=== PATIENT | female | born 1970 | race Caucasian/White ===

== ENCOUNTER 2017-08-04 15:42 | Emergency (ER) | payer OTHER ==
[2017-08-04 15:50] VITALS: RESP 18; TEMP 98.1
--- NOTE | 2017-08-04 16:23 | EDPHY ---
HPI/HX/ROS/PE/MDM Narrative: CHIEF COMPLAINT: Transient aphasia and near syncope HISTORY OF PRESENT ILLNESS: The patient is a 46 y/o female arriving via EMS following a near syncopal episode accompanied by aphasia. 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 She had difficulty thinking and saying words. The words she did say sounded weird to both her and the people on the conference call. She describes feeling dizzy, lightheaded, tongue tingling, anxiety, and heart racing. She sat down and called her and he reports that she was upset but articulate. She reports symptoms are now resolved. She has experienced a recent cold, and a menstrual period two weeks early. She denies nausea, vomiting, or other associated symptoms. She denies history of hypertension, diabetes, or family history of strokes. She reports eating and drinking normally today. No fever, chills, chest pain, shortness of breath, palpitations, vomiting, diarrhea, urinary complaints, headache, lightheadedness. REVIEW OF SYSTEMS: Aside from elements discussed in the HPI, a comprehensive 10-point review of systems was reviewed and is negative. PAST MEDICAL HISTORY: Uterine ablation SOCIAL HISTORY: at bedside, works from home, lives in [place]. VITAL SIGNS Reviewed by me. GENERAL: Well-developed, well-nourished, resting in a dark room. HEENT: Atraumatic. Eyes: PERRL, EOMI, no nystagmus. No icterus. No injection. Mouth: moist mucous membranes. No erythema or lesions. Neck: No meningitis. Nontender to palpation. No adenopathy. Negative Kernig's. Negative Brudzinski's. No meningismus. LUNGS: Clear to auscultation bilaterally, no wheezes, rhonchi or rales. CARDIAC: Regular rate and rhythm, no rubs, murmurs or gallops. ABDOMEN: Soft, nontender, nondistended, bowel sounds normal. BACK: No CVA tenderness. EXTREMITIES: No trauma. No edema. Range of motion is normal throughout. NEURO: Alert and oriented, cranial nerves II through XII are intact. Motor strength 5 over 5 in all major muscle groups. Sensation intact to light touch. Normal gait. A few misspeaks on articulation SKIN: Warm and dry, no rash. PSYCHIATRIC: Normal mentation, no agitation. Portions of this note were transcribed by a biomedical equipment specialist. I personally performed a history, physical exam, medical decision making, and confirmed accuracy of information the transcribed note. ED Course: 12-LEAD EKG: Please see the full report in [facility]. My interpretation: Normal sinus rhythm Study: CT of the head Indication: Acute aphasia Results: CT scan of the body parts was obtained. The results of the study are normal. The study was read by the radiologist, Dr. Baker I viewed the images myself on the PACS system. Study: MRI of the: Head and neck Indication: Neurologic Results: MRI scan of the body parts was obtained. The results of the study are normal. The study was read by the radiologist, Dr. Kimbrough. I viewed the images myself on the PACS system. The patient is a 46 y/o female complaining of acute onset aphasia and faint feeling. She was on a conference call today when she felt she might faint and began experiencing difficulty thinking and say words. The words she did say did not make sense which was noted by the people on the call with her. She reports symptoms have resolved though she had a few misspeaks with me on articulation and object naming. 1715: Head CT and EKG are both normal. I will consult with Neurology. 1722: I spoke with Dr. Gonzalez, neurology, regarding this patient. He recommends evaluation of the carotid arteries and an MRI the brain would help complete the patient's evaluation and she could be discharged if these were normal. Patient did have a brain MRI as well as a 4 vessel angiogram MRI of the neck. 2050: Head and neck MRI normal. Patient remains neurologically intact with complete resolution of all her symptoms. I feel she is safe to return home and she agrees. Follow-up and return precautions given. MDM: Differential diagnoses the patient's presenting complaints was considered including but not limited to intracranial injury, TIA, ischemic cerebrovascular accident, hemorrhagic cerebrovascular accident, hypoglycemia, complex migraine , metastases, tumor, seizure, or electrolyte abnormality - Data Points Imaging Results: Head CT Impression: 1. No significant intracranial abnormality seen. 2. Thickening of the inferior left maxillary sinus with dental disease around the roots of the left first molar off the alveolar ridge. If symptoms worsen, additional imaging may be necessary. Findings discussed with Madina Urena MD at 17:10 hour, 08/04/2017. Brain MRI Impression: Normal MRI of the brain without contrast. Results called and discussed with Madina Urena MD at 08/04/2017 20:50. Dictated By: Chauncey Kimbrough MD Angio neck MRI Impression: No flow-significant stenosis in the carotid arteries. 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 Widely patent right vertebral artery. Results called and discussed with Madina Urena MD, at 2053 on 04 August 2017. Laboratory Results: Laboratory Results 08/04/17 15:25 08/04/17 15:25 Medications Given: Discontinued Medications Lorazepam (Ativan Injection) 1 mg IVP EDNOW ONE Stop: 08/04/17 18:42 Last Admin: 08/04/17 18:53 Dose: 1 mg General Time Seen by Provider: 08/04/17 16:04 Initial Vital Signs: Initial Vital Signs Temperature (C) 36.7 C 08/04/17 15:47 Heart Rate 69 08/04/17 15:47 Respiratory Rate 18 08/04/17 15:47 Blood Pressure 115/70 08/04/17 15:47 O2 Sat (%) 100 08/04/17 15:47 O2 Delivery Mode Room Air Allergies/Adverse Reactions: Sulfa (Sulfonamide Antibiotics) Allergy (Intermediate, Verified 11/11/14 07:52) Hives Home Medications: Medication Instructions Recorded NK [No Known Home Meds] 08/04/17 Departure - Departure Disposition: Home, Routine, Self-Care Clinical Impression: Word finding difficulty, Slurred speech Transient cerebral ischemia Qualifiers: Transient cerebral ischemia type: other Qualified Code(s): G45.8 - Other transient cerebral ischemic attacks and related syndromes Condition: Good Instructions: Transient Ischemic Attack (ED) Additional Instructions: It is possible that your events today represent a transient ischemic attack. I recommend that you follow up with your primary care physician as well as with Neurology. Please return to the emergency department or seek care urgently if your symptoms recur, if you develop numbness or tingling in your arms or legs, developed weakness, recurrent word-finding difficulties, visual changes, or other concerns. Referrals: Patient,NotPresent [Unknown] - As per Instructions Cj Gnozalez DO [Doctor of Osteopathy] - As per Instructions Report Scribed for: Madina Urena Report Scribed by: Delicia De Los Santos Date of Report: 08/04/17 Time of Report: 16:52
[2017-08-04 16:28] LABS: % IMMATURE GRANULYOCYTES 0.3 % (0.0-1.1); ABSOLUTE IMMATURE GRANULOCYTES 0.02 10^3/uL (0.00-0.10); ADD DIFF? NO; ADD MORPH? NO; ADD SCAN? NO; ATYPICAL LYMPHOCYTE FLAG 0 (0-99); FRAGMENT RBC FLAG 0 (0-99); HEMATOCRIT 42.4 % (38.0-47.0); HEMOGLOBIN 14.3 g/dL (12.6-16.3); LEFT SHIFT FLG 0 (0-99); LIPEMIA HEMOLYSIS FLAG 80 (0-99); MEAN CELL HEMOGLOBIN 30.7 pg (27.9-34.1); MEAN CELL HEMOGLOBIN CONCENTR. 33.7 g/dL (32.4-36.7); MEAN PLATELET VOLUME 9.9 fL (8.7-11.7); PLATELET CLUMPS FLAG 10 (0-99); PLATELET COUNT 304 10^3/uL (150-400); RED BLOOD CELL COUNT 4.66 10^6/uL (4.18-5.33); RED CELL DISTRIBUTION WIDTH 12.7 % (11.5-15.2)
[2017-08-04 16:33] LABS: ANION GAP 13 mEq/L (8-16); CALCIUM 9.6 mg/dL (8.5-10.4); CARBON DIOXIDE 26 mEq/l (22-31); CHLORIDE 102 mEq/L (97-110); CREATININE 0.7 mg/dL (0.6-1.0); GLOMERULAR FILTRATION RATE > 60; GLUCOSE 86 mg/dL (70-100); INR 1.07 (0.83-1.16); POTASSIUM 4.6 mEq/L (3.5-5.2); PROTIME(PATIENT) 13.8 SEC (12.0-15.0); SODIUM 141 mEq/L (134-144)
[2017-08-04 16:44] LABS: TROPONIN I < 0.012 ng/mL (0.000-0.034)
--- NOTE | 2017-08-04 17:10 | CPEKG ---
Heart Rate: 65 RR Interval: 923 P-R Interval: 140 QRSD Interval: 94 QT Interval: 416 QTC Interval: 433 P Nelson: 14 QRS Nelson: 2 T Wave Nelson: 53 EKG Severity - NORMAL ECG - EKG Impression: SINUS RHYTHM Electronically Signed By: Madina Urena 04-Aug-2017 23:54:05
[2017-08-04 18:06] VITALS: PULSE 71
[2017-08-04] MEDS ORDERED: GADOBUTROL 10 ML VIAL IVP ONE (18:36)
[2017-08-04] MEDS ORDERED: LORazepam 2 MG/ML INJ IVP ONE (18:41)
[2017-08-04 20:49] VITALS: BP 115/80; O2SAT 98
== END 2017-08-04 21:08 | disposition home or self-care (01) ==
LOC: EDUNIT#
DX: R47.01 Aphasia (principal); G45.8 Other transient cerebral ischemic attacks and related syndromes; R47.81 Slurred speech
CPT/HCPCS: 96374; A9585; J2060

== ENCOUNTER → 2017-09-21 | Outpatient (CLI) | payer OTHER | LOC: BMCIMAGING 10:26 | PROVIDERS: ATTEND Obstetrics & Gynecology | DX: N63.20 Unspecified lump in the left breast, unspecified quadrant (principal) | CPT/HCPCS: G0204 ==

== ENCOUNTER → 2018-04-01 | Outpatient (CLI) | payer BC, OTHER | LOC: FIMAGING 14:08 | PROVIDERS: ATTEND Obstetrics & Gynecology | DX: R92.8 Other abnormal and inconclusive findings on diagnostic imaging of breast (principal) ==

== ENCOUNTER → 2019-01-09 | Outpatient (CLI) | payer BC | LOC: FIMAGING 15:02 | PROVIDERS: ATTEND Obstetrics & Gynecology | DX: Z12.31 Encounter for screening mammogram for malignant neoplasm of breast (principal) ==